=== PATIENT | female | born 1965 | race African-American/Black ===

== ENCOUNTER → 2020-08-10 | Outpatient (CLI) | payer MEDICAID ==
[~2020-08-10] VITALS: Ht 170.2 cm; Wt 118.4 kg
[~2020-08-10] MED LIST: ALBUAER3 IN; APIX5TAB PO; BUME2TAB5 PO; CHOL20007 PO; CYA100I PO; MAGN400T40 PO; POTA10TA51 PO; PRAV20TA3 PO; SENN-58 PO; SOTA80TA PO
== END | disposition home or self-care (01) ==
LOC: CATH 09:00 → EDSTATUS 08-16 14:24
PROVIDERS: ATTEND Internal Medicine Cardiovascular Disease
DX: Z20.828 Contact with and (suspected) exposure to other viral communicable diseases (principal); I50.9 Heart failure, unspecified; J44.9 Chronic obstructive pulmonary disease, unspecified; Z88.6 Allergy status to analgesic agent; Z98.890 Other specified postprocedural states; Z79.899 Other long term (current) drug therapy; Z68.41 Body mass index [BMI] 40.0-44.9, adult